=== PATIENT | female | born 1955 | race Caucasian/White ===

== ENCOUNTER → 2018-01-13 12:58 | Outpatient (CLI) | payer OTHER, MEDICAID, SELFPAY ==
--- NOTE | 2018-01-13 13:00 | DI.MG.S_ITS ---
BILATERAL DIGITAL SCREENING MAMMOGRAM 3D/2D WITH CAD: 01/13/2018 CLINICAL: Routine screening. Comparison is made to exam dated: 02/22/2014 [facility]. The tissue of both breasts is heterogeneously dense. This may lower the sensitivity of mammography. Current study was also evaluated with a Computer Aided Detection (CAD) system. There is a mole marker on the right breast. No significant masses, calcifications, or other findings are seen in either breast. There has been no significant interval change. IMPRESSION: NEGATIVE There is no mammographic evidence of malignancy. A 1 year screening mammogram is recommended. This exam was interpreted at Station ID: [id number]. NOTE: For mammograms, a report in lay terms will be sent to the patient. Approximately 15% of breast malignancies will not be visualized mammographically. In the management of a palpable breast mass, a negative mammogram must not discourage biopsy of a clinically suspicious lesion. Electronically Signed By: Dario [email or web address]:01/13/2018 19:10:11 letter sent: Normal Exam ACR BI-RADS Category 1: Negative [id number]
== END ==
PROVIDERS: Family Provider Physician Assistant; PCP Physician Assistant; Visit Provider Physician Assistant
DX: Z12.31 Encounter for screening mammogram for malignant neoplasm of breast (principal)
CPT/HCPCS: 77063; 77067

== ENCOUNTER 2018-02-13 10:31 | Emergency (ER) | payer OTHER, MEDICAID, SELFPAY ==
[2018-02-13 10:35] VITALS: BP 107/78; PULSE 74; RESP 18; TEMP 36.6; O2SAT 97; BMI 24.5
--- NOTE | 2018-02-13 11:51 | ED_ITS ---
HPI - Back Pain/Injury General Chief Complaint: Back Pain/Injury Stated Complaint: EXTREME PAIN IN RIGHT HIP History of Present Illness HPI Narrative: HPI 62-year-old female presents for evaluation of recurrent right sided paraspinal lumbar pain that is sharp, radiating down the posterior lateral aspect of her right leg, worsened by twisting/walking, relieved by rest, and has been present since awakening this morning. Patient symptoms are similar to an event that occurred approximately 2 years ago and resolved with apparent conservative therapy. Patient denies a history of recent trauma, fevers, chills, unexpected weight loss, decreased perineal sensation when toileting, difficulty urinating or incontinence, morning stiffness, IV drug use, alcoholism, recent invasive medical procedures, presyncope, abdominal pain, or dysuria. Smoking: lifelong smoker, quit 2 years ago. Anticoagulation: denies anticoagulation and Plavix. M/S/F/SocHx notable for: please see HPI; remainder reviewed with patient and in chart. ROS: Negative constitutional, eye, cardiovascular, pulmonary, GI, , MSK, skin , neurologic, psychiatric, endocrine unless noted in the HPI. Exam HR 74, BP 107/78, RR 18, T 97.8?F, SaO2 97% on room air. Gen: Pleasant, non-toxic appearing, resting comfortably. HEENT: NC, AT, PEERL, EOMI. Resp: CTAB Card: RRR GI: ND, non-tender to palpation, no palpable midline masses, no palpable midline pulsatility. : No CVA tenderness to percussion bilaterally. MSK: No visible deformities, strength and tone WNL. No lower thoracic or lumbar spinal TTP, step offs or deformities. Right sided paraspinal TTP that reproduces the patient's presenting complaint, no left sided paraspinal tenderness to palpation. Skin: Normal color with no visible lesions. Neuro: AO x 3, no facial asymmetry, vision and hearing WNL. Straight leg raise test - negative right, negative left. BLE distal sensation intact, 5/5 dorsiflexion / plantarflexion bilaterally. Gait: mildly antalgic, normal, narrow based gait, able to walk unassisted and stand on heels and toes with full apparent strength. Psych: Mood and affect appropriate. Labs / Imaging (pertinent): Focused Aortic Ultrasound Indication: Back Pain Exam type (limited): Initial Views obtained: Transverse proximal aorta, Transverse mid aorta , Transverse distal aorta and Sagittal view aorta. Findings/Interpretation: No evidence of AAA in visualized areas of aorta AAA visualized: greatest measurement in transverse diameter: 1.39-1.50 cm at the mid aorta. MDM Previous chart, nursing note, and vitals reviewed. A: 62-year-old female presents for evaluation of recurrent right sided paraspinal lumbar pain that is sharp, radiating down the posterior lateral aspect of her right leg, worsened by twisting/walking, relieved by rest, and has been present since awakening this morning. DDx: muscle strain, muscle spasm, sciatica, lumbar radiculopathy, cauda equina syndrome, spinal cord abscess, vertebral osteomyelitis, vertebral diskitis, fracture, seronegative spondyloarthropathy, abdominal aortic aneurysm, abdominal aortic dissection, spontaneous hematoma, malignant spinal cord compression. Evaluation: * Cauda equina - consider unlikely given normal perineal sensation, lack of incontinence or urinary retention. * Infection - abscess, vertebral osteomyelitis, and diskitis are unlikely as the patient is immunocompetent and is with an absence of infectious signs and risk factors on ROS, and a lack of point tenderness. * Fracture - doubt given the absence of spinal TTP and lack of prior trauma * Seronegative spondyloarthropathy - unlikely, no further evaluation currently indicated given the absence of morning stiffness and negative RA, psoriatic arthritis, and autoimmune disease history. * AAA or Dissection - bedside ultrasound without evidence of clinically appreciable dilation, dissection was considered, but given the lack of abdominal pain, presyncope, and a strong alternative diagnosis, further evaluation is not currently indicated. * Spinal Metastases - given the unremarkable ROS, absence of point spinal tenderness on exam and the lack of discernible neurological deficit, no further testing regarding this etiology is currently indicated. * Consider lumbar radiculopathy to be the most likely cause of the patient's symptoms. Counseled patient regarding natural course of radicular back pain, given return to care instructions, and recommendation for primary care physician follow up. Discharged with limited RX for OB analgesia. Impression: Back Pain. (please reference below for remainder of encounter information) Related Data Home Medications Medication Instructions Recorded Confirmed thyroid (pork) [[place] Thyroid] 1 tab PO DAILY 02/13/18 02/13/18 Previous Rx's Medication Instructions Recorded losartan-hydrochlorothiazide 1 tab PO QDAY #30 tab 10/05/17 Allergies Allergy/AdvReac Type Severity Reaction Status Date / Time fluconazole [FLUCONAZOLE] Allergy Intermediate EXTREME Verified 02/13/18 11:16 [facility] AdvReac Intermediate PER ALEKSANDR, Uncoded 02/13/18 11:16 UPSETS HER STOMACH PFSH Medical History Hypertension (Chronic) Hypothyroidism (Chronic) Surgical History History of thyroidectomy (Resolved 07/2012) Family History Father Diabetes mellitus Myocardial infarction Mother Brain tumor Social History Smoking Status: Former smoker Exam Initial Vital Signs Initial Vital Signs: Vital Signs Temperature 97.8 F 02/13/18 10:35 Pulse Rate 74 02/13/18 10:35 Respiratory Rate 18 02/13/18 10:35 Blood Pressure 107/78 02/13/18 10:35 Pulse Oximetry 97 02/13/18 10:35 Course Vital Signs - 8 hr 02/13/18 10:35 Temperature 97.8 F Pulse Rate 74 Respiratory Rate 18 Blood Pressure 107/78 Pulse Oximetry 97 Discharge Plan Departure Prescriptions: No Action losartan-hydrochlorothiazide 50 MG/12.5 MG tablet 1 tab PO QDAY Qty: 30 RF: 6 oxyquinoline-sod.lauryl sulfat [Trimo-[facility]raham Jelly] 0.025-0.01 % gel 1 applic Vaginal DIRECTED RF: 0 thyroid (pork) [[place] Thyroid] 90 mg tablet 1 tab PO DAILY RF: 0
== END 2018-02-13 12:05 | disposition home or self-care (01) ==
PROVIDERS: Emergency Provider Emergency Medicine; PCP Physician Assistant
DX: M54.9 Dorsalgia, unspecified (principal)
CPT/HCPCS: 99282

== ENCOUNTER → 2018-02-24 11:56 | Outpatient (CLI) | payer OTHER, MEDICAID, SELFPAY ==
[2018-02-24 12:29] LABS: Appearance Urine UA CLOUDY; Bilirubin Urine UA NEGATIVE (NEGATIVE); Color Urine UA YELLOW; Glucose Urine UA NEGATIVE (Normal); Ketones Urine UA NEGATIVE (NEGATIVE); Leukocyte Esterase Urine UA 2+ (NEGATIVE); Nitrite Urine UA Negative (Negative); Occult Blood Urine UA 2+ (Negative); Protein Urine UA 1+ (Negative); Specific Gravity Urine UA 1.015 (1.000-1.035); Urobilinogen Urine UA 0.2 E.U./dL (0.2)
[2018-02-24 12:45] LABS: Bacteria Urine Few (2-10); RBC Urine 5-10/HPF (0-5/HPF); Squamous Epithelial Cell Urine 1-5 /HPF; WBC Urine 30-100/HPF (0-5/HPF)
[2018-02-24 12:46] LABS: Urine Comments CX ALREADY ORDERED
== END ==
DX: R30.0 Dysuria (principal)
CPT/HCPCS: 81001; 87077; 87086; 87186

== ENCOUNTER → 2018-04-22 09:27 | Outpatient (CLI) | payer OTHER, MEDICAID, SELFPAY ==
[2018-04-22 11:56] LABS: Appearance Urine UA CLEAR; Bilirubin Urine UA NEGATIVE (NEGATIVE); Color Urine UA YELLOW; Glucose Urine UA NEGATIVE (Normal); Ketones Urine UA NEGATIVE (NEGATIVE); Leukocyte Esterase Urine UA 2+ (NEGATIVE); Nitrite Urine UA NEGATIVE (Negative); Occult Blood Urine UA TRACE-LYSED (Negative); Protein Urine UA NEGATIVE (Negative); Urobilinogen Urine UA 0.2 E.U./dL (0.2)
[2018-04-22 11:58] LABS: Add Manual Diff / Slide Review NO; Basophils Percent Auto 0.6 % (0-2); Hematocrit 41.6 % (36-46); Hemoglobin 13.8 g/dL (12.0-16.0); Lymphocytes Percent Auto 27.9 % (25-40); Mean Corpuscular HGB Conc 33.3 % (30-36); Mean Corpuscular Hemoglobin 29.2 PG (26-34); Mean Corpuscular Volume 87.6 fL (80-100); Monocytes Percent Auto 9.2 % (3-14); Neutrophils Absolute Auto 3800 /uL (3000-5900); Neutrophils Percent Auto 58.3 % (50-75); Platelet Count 268 X10^3/uL (150-400); Red Blood Cell Count 4.75 X10^6/uL (4.0-5.2); Red Cell Distribution Width 12.6 % (11.6-14.8); White Blood Cell Count 6.6 X10^3/uL (4.5-11.0)
[2018-04-22 12:10] LABS: Bacteria Urine None Seen; RBC Urine None Seen (0-5/HPF)
[2018-04-22 12:18] LABS: Culture Indicated Urine Specimen Cultured; WBC Urine 5-10/HPF (0-5/HPF)
[2018-04-22 12:21] LABS: Alanine Aminotransferase 29 IU/L (9-52); Albumin 4.7 g/dL (3.5-5.0); Albumin Globulin Ratio 1.4 (1.0-2.8); Alkaline Phosphatase 58 U/L (38-126); Aspartate Aminotransferase 30 IU/L (14-36); BUN Creatinine Ratio 21.3 (6-22); Bilirubin Total 1.6 mg/dL (0.2-1.3); Blood Urea Nitrogen 17 mg/dL (7-17); Calcium 9.1 mg/dL (8.4-10.2); Carbon Dioxide 30 mmol/L (22-32); Chloride 101 mmol/L (98-107); Cholesterol 207 mg/dL (140-199); Estimated Glomerular Filt Rate > 60.0 mL/min (>60); Globulin 3.4 g/dL (1.7-4.1); Glucose 90 mg/dL (80-110); HDL Cholesterol 51 mg/dL (40-60); HEMOLYSIS < 15 (0-50); LDL Cholesterol Calculated 142 mg/dL (<100); Potassium 3.8 mmol/L (3.4-5.1); Sodium 146 mmol/L (137-145); Total Protein 8.1 g/dL (6.3-8.2); Triglycerides 70 mg/dL (35-150)
[2018-04-22 12:34] LABS: Free T3, Triiodothyronine Free 3.02 pg/mL (2.77-5.27); Free T4, Direct Thyroxine 0.56 ng/dL (0.78-2.19)
[2018-04-22 12:48] LABS: Thyroid Stimulating Hormone 0.31 uIU/mL (0.47-4.68)
== END ==
PROVIDERS: PCP Family Medicine; Visit Provider Family Medicine
DX: E03.9 Hypothyroidism, unspecified (principal); F32.9 Major depressive disorder, single episode, unspecified; Z13.220 Encounter for screening for lipoid disorders; Z51.81 Encounter for therapeutic drug level monitoring
CPT/HCPCS: 36415; 80053; 80061; 81003; 81015; 84439; 84443; 84481; 85025; 87086

== ENCOUNTER → 2018-09-02 08:46 | Outpatient (CLI) | payer OTHER, MEDICAID, SELFPAY ==
[2018-09-02 10:00] LABS: Cholesterol 199 mg/dL (140-199); HDL Cholesterol 47 mg/dL (40-60); LDL Cholesterol Calculated 136 mg/dL (<100); Triglycerides 78 mg/dL (35-150)
[2018-09-02 10:30] LABS: Free T3, Triiodothyronine Free 3.61 pg/mL (2.77-5.27); Free T4, Direct Thyroxine 0.68 ng/dL (0.78-2.19)
[2018-09-02 10:43] LABS: Thyroid Stimulating Hormone 0.16 uIU/mL (0.47-4.68)
== END ==
PROVIDERS: PCP Family Medicine; Visit Provider Family Medicine
DX: E03.9 Hypothyroidism, unspecified (principal); E78.5 Hyperlipidemia, unspecified
CPT/HCPCS: 36415; 80061; 84439; 84443; 84481

== ENCOUNTER → 2018-11-17 09:10 | Outpatient (CLI) | payer OTHER, MEDICAID, SELFPAY ==
[2018-11-17 10:50] LABS: Add Manual Diff / Slide Review NO; Basophils Absolute Auto 100 /uL (0-100); Basophils Percent Auto 0.8 % (0-2); Eosinophils Absolute Auto 200 /uL (0-450); Eosinophils Percent Auto 3.9 % (2-4); Hematocrit 41.5 % (36-46); Hemoglobin 13.8 g/dL (12.0-16.0); Lymphocytes Absolute Auto 1700 /uL (1100-4500); Lymphocytes Percent Auto 28.6 % (25-40); Mean Corpuscular HGB Conc 33.3 % (30-36); Mean Corpuscular Hemoglobin 29.3 PG (26-34); Mean Corpuscular Volume 88.2 fL (80-100); Monocytes Absolute Auto 400 /uL (0-900); Monocytes Percent Auto 6.8 % (3-14); Neutrophils Absolute Auto 3600 /uL (1500-7000); Neutrophils Percent Auto 59.9 % (50-75); Platelet Count 263 X10^3/uL (150-400); White Blood Cell Count 6.1 X10^3/uL (4.5-11.0)
[2018-11-17 11:07] LABS: Alanine Aminotransferase 26 IU/L (9-52); Albumin 4.5 g/dL (3.5-5.0); Albumin Globulin Ratio 1.4 (1.0-2.8); Alkaline Phosphatase 60 U/L (38-126); Aspartate Aminotransferase 33 IU/L (14-36); BUN Creatinine Ratio 28.6 (6-22); Blood Urea Nitrogen 20 mg/dL (7-17); Calcium 9.3 mg/dL (8.4-10.2); Carbon Dioxide 31 mmol/L (22-32); Chloride 102 mmol/L (98-107); Estimated Glomerular Filt Rate > 60.0 mL/min (>60); Globulin 3.2 g/dL (1.7-4.1); Glucose 97 mg/dL (80-110); HEMOLYSIS < 15 (0-50); Potassium 3.9 mmol/L (3.4-5.1); Sodium 142 mmol/L (137-145); Total Protein 7.7 g/dL (6.3-8.2)
[2018-11-17 11:22] LABS: Free T3, Triiodothyronine Free 2.69 pg/mL (2.77-5.27); Free T4, Direct Thyroxine 0.42 ng/dL (0.78-2.19)
== END ==
PROVIDERS: PCP Family Medicine; Visit Provider Family Medicine
DX: E03.9 Hypothyroidism, unspecified (principal); E78.5 Hyperlipidemia, unspecified; K57.30 Diverticulosis of large intestine without perforation or abscess without bleeding; N81.4 Uterovaginal prolapse, unspecified
CPT/HCPCS: 36415; 80053; 84439; 84443; 84481; 85025